=== PATIENT | female | born 1945 | race Caucasian/White ===

== ENCOUNTER 2017-07-03 11:35 | Emergency (ER) | payer OTHER, MEDICAID ==
[~2017-07-03] VITALS: Ht 172.7 cm; Wt 55.0 kg
[2017-07-03 11:39] VITALS: BP 144/83; PULSE 98; RESP 16; TEMP 98; O2SAT 99
[2017-07-03] MEDS ORDERED: VIST25CA PO (12:00)
--- NOTE | 2017-07-03 12:07 | PD ---
HPI Chief Complaint: Anxiety Time Seen by Provider: 11:59 Travel History International Travel<30 days: No Contact w/Intl Traveler<30days: No Traveled to known affect area: No History of Present Illness HPI 71-year-old female presents emergency department with ongoing issues with anxiety and insomnia for the past several months worse the last several days. Patient relates a history of multiple abdominal surgeries and hip fracture since last fall. She is now living on her own, and feeling anxious. She is not depressed or suicidal. She does see a psychiatrist who recently prescribed BuSpar in addition to her nortriptyline. Patient states she did not take the BuSpar she was feeling somewhat better. Today she feels worse and more anxious. She denies significant anxiety attacks however. Patient denies any other acute medical issues at this time. She has no known drug allergies. [facility] Social History Alcohol Use: Yes Tobacco Use: No Substance Use: No Allergies-Medications Reported Meds & Prescriptions Reported Meds & Active Scripts Active Vistaril (Hydroxyzine Pamoate) 25 Mg Cap 25 Mg PO QID Review of Systems Except as stated in HPI: all other systems reviewed are Neg General / Constitutional: No: Fever Eyes: No: Visual changes HENT: No: Headaches Cardiovascular: No: Chest Pain or Discomfort Respiratory: No: Shortness of Breath Gastrointestinal: No: Abdominal Pain Genitourinary: No: Dysuria Musculoskeletal: No: Pain Skin: No Rash Neurologic: No: Weakness Psychiatric: Positive: Anxiety, Depression, No: Suicidal Ideations (Mild), Substance Abuse, Homicidal Ideation Endocrine: No: Polydipsia Hematologic/Lymphatic: No: Easy Bruising Physical Exam Narrative GENERAL: Patient does appear somewhat anxious, but otherwise in no acute distress. SKIN: Warm and dry. Normal color. Normal turgor. HEAD: Atraumatic. Normocephalic. EYES: Pupils equal and round. No scleral icterus. No injection or drainage. ENT: No nasal bleeding or discharge. Mucous membranes pink and moist. Pharynx is clear. Airways patent. NECK: Trachea midline. Supple and nontender. No palpable thyroid. CARDIOVASCULAR: Regular rate and rhythm. RESPIRATORY: No accessory muscle use. Clear to auscultation. Breath sounds equal bilaterally. MUSCULOSKELETAL: Extremities without clubbing, cyanosis, or edema. No obvious deformities. NEUROLOGICAL: Awake and alert. No obvious cranial nerve deficits. Motor grossly within normal limits. Five out of 5 muscle strength in the arms and legs. Normal speech. PSYCHIATRIC: Appropriate mood and affect; insight and judgment normal. Data Data Last Documented VS Vital Signs Date Time Temp Pulse Resp B/P (MAP) Pulse Ox O2 Delivery O2 Flow Rate FiO2 07/03/17 11:39 98.0 98 16 144/83 (103) 99 MDM Medical Decision Making Medical Screen Exam Complete: Yes Emergency Medical Condition: Yes Differential Diagnosis Mild depression. Anxiety. Insomnia. Narrative Course Recommend the patient continue her nortriptyline as previously prescribed Recommend patient start her BuSpar as prescribed. Patient is given Vistaril 25 mg up to 4 times daily as needed, #20 Patient should follow with her psychiatrist regarding further changes in her meds. Patient can return if symptoms worsen as needed. Diagnosis Primary Impression: Depression with anxiety Referrals: Psychiatrist Patient Instructions: Anxiety (ED), General Instructions Additional Instructions: Recommend the patient continue her nortriptyline as previously prescribed Recommend patient start her BuSpar as prescribed. Patient is given Vistaril 25 mg up to 4 times daily as needed, #20 Patient should follow with her psychiatrist regarding further changes in her meds. Patient can return if symptoms worsen as needed. Med/Other Pt SpecificInfo: Prescription(s) given Scripts Hydroxyzine Pamoate (Vistaril) 25 Mg Cap 25 MG PO QID for Anxiety and/or Insomnia, #20 CAP 0 Refills Prov: Humberto Nogueira MD 07/03/17 Disposition: 01 DISCHARGE HOME Condition: Stable Morgan Vizcarra July 03, 2017 12:07
== END 2017-07-03 13:08 | disposition home or self-care (01) ==
LOC: NEPK 11:35
DX: F41.8 Other specified anxiety disorders (principal); G47.00 Insomnia, unspecified
CPT/HCPCS: 99283

== ENCOUNTER 2017-07-04 01:48 | Emergency (ER) | payer OTHER, MEDICAID ==
[~2017-07-04 01:48] MED LIST: VIST25CA PO
[2017-07-04 01:51] VITALS: BP 149/70; PULSE 102; RESP 18; TEMP 97.1; O2SAT 99
--- NOTE | 2017-07-04 02:09 | PD ---
HPI Chief Complaint: Anxiety Time Seen by Provider: 02:02 Travel History International Travel<30 days: No Contact w/Intl Traveler<30days: No Traveled to known affect area: No History of Present Illness HPI 71-year-old female here by private vehicle for evaluation of anxiety, depression , insomnia. The patient was seen in the emergency department yesterday for the same, however states that her symptoms have not improved. She talks about how a couple of months ago, over the course of form when she had 3 major abdominal surgeries and right hip surgery. This caused her to become depressed. She talks about how she needed an NG tube and how awful this experience was. She states that her abdomen has healed since then and she does not have any abdominal complaints today. She states that she is on Klonopin, however she has been reading the Klonopin can have adverse side effects such as insomnia. She has been waking up for the past 3 or 4 nights in the middle of the night and unable to fall back asleep. She reports feeling depressed and is thought about suicide, however states she would never harm herself, and has no specific plan. [facility] Past Medical History Diminished Hearing: No Fibromyalgia: Yes Immunizations Current: Yes Past Surgical History Abdominal Surgery: Yes (COLON REMOVAL, SMALL INTESTINE REMOVAL) Other Surgery: Yes (CHOLOSTOMY PLACEMENT/REMOVAL) Social History Alcohol Use: No Tobacco Use: No Substance Use: No Allergies-Medications (Allergen,Severity, Reaction): Coded Allergies: Sulfa (Sulfonamide Antibiotics) (Verified Allergy, Severe, 07/04/17) metronidazole (Verified Allergy, Severe, 07/04/17) promethazine (Verified Allergy, Severe, 07/04/17) Reported Meds & Prescriptions Reported Meds & Active Scripts Active Vistaril (Hydroxyzine Pamoate) 25 Mg Cap 25 Mg PO QID Review of Systems Except as stated in HPI: all other systems reviewed are Neg Physical Exam Narrative GENERAL: Well-developed, well-nourished, awake, alert, no apparent distress. SKIN: Focused skin assessment warm/dry. HEAD: Atraumatic. Normocephalic. EYES: Pupils equal and round. No scleral icterus. No injection or drainage. ENT: No nasal bleeding or discharge. Mucous membranes pink and moist. NECK: Trachea midline. No JVD. CARDIOVASCULAR: Regular rate and rhythm. No murmur appreciated. RESPIRATORY: No accessory muscle use. Clear to auscultation. Breath sounds equal bilaterally. GASTROINTESTINAL: Abdomen soft, non-tender, nondistended. Hepatic and splenic margins not palpable. MUSCULOSKELETAL: No obvious deformities. No clubbing. No cyanosis. No edema. NEUROLOGICAL: Awake and alert. No obvious cranial nerve deficits. Motor grossly within normal limits. Normal speech. PSYCHIATRIC: Appears anxious. Data Data Last Documented VS Vital Signs Date Time Temp Pulse Resp B/P (MAP) Pulse Ox O2 Delivery O2 Flow Rate FiO2 07/04/17 01:51 97.1 102 18 149/70 (96) 99 Orders Orders Complete Blood Count With Diff (07/04/17 02:07) Comprehensive Metabolic Panel (07/04/17 02:07) Thyroid Stimulating Hormone (07/04/17 02:07) Psych Screen (07/04/17 02:07) Lorazepam Inj (Ativan Inj) (07/04/17 02:15) Labs Laboratory Tests Test 07/04/17 02:20 White Blood Count 6.1 TH/MM3 Red Blood Count 4.88 MIL/MM3 Hemoglobin 15.0 GM/DL Hematocrit 44.7 % Mean Corpuscular Volume 91.6 FL Mean Corpuscular Hemoglobin 30.8 PG Mean Corpuscular Hemoglobin Concent 33.6 % Red Cell Distribution Width 14.4 % Platelet Count 304 TH/MM3 Mean Platelet Volume 9.3 FL Neutrophils (%) (Auto) 51.0 % Lymphocytes (%) (Auto) 37.4 % Monocytes (%) (Auto) 8.4 % Eosinophils (%) (Auto) 2.2 % Basophils (%) (Auto) 1.0 % Neutrophils # (Auto) 3.1 TH/MM3 Lymphocytes # (Auto) 2.3 TH/MM3 Monocytes # (Auto) 0.5 TH/MM3 Eosinophils # (Auto) 0.1 TH/MM3 Basophils # (Auto) 0.1 TH/MM3 CBC Comment DIFF FINAL Differential Comment Blood Urea Nitrogen 18 MG/DL Creatinine 0.95 MG/DL Random Glucose 101 MG/DL Total Protein 8.8 GM/DL Albumin 4.1 GM/DL Calcium Level 9.1 MG/DL Alkaline Phosphatase 74 U/L Aspartate Amino Transf (AST/SGOT) 45 U/L Alanine Aminotransferase (ALT/SGPT) 34 U/L Total Bilirubin 0.5 MG/DL Sodium Level 138 MEQ/L Potassium Level 4.7 MEQ/L Chloride Level 102 MEQ/L Carbon Dioxide Level 28.8 MEQ/L Anion Gap 7 MEQ/L Estimat Glomerular Filtration Rate 58 ML/MIN Thyroid Stimulating Hormone 3rd Gen 2.690 uIU/ML MDM Medical Decision Making Medical Screen Exam Complete: Yes Emergency Medical Condition: Yes Differential Diagnosis Anxiety, depression, PTSD, insomnia Narrative Course Vital signs reviewed. CBC is unremarkable. CMP shows a potassium of 4.7 with slight hemolysis, AST 45, otherwise unremarkable. TSH is 2.69. Patient was given 1 mg of IV Ativan and on reassessment states she feels better. She was to like to talk to the psychiatric team about the way she is feeling. She is medically cleared for psychiatric evaluation and disposition by them. Diagnosis Primary Impression: Anxiety Additional Impression: Insomnia Qualified Codes: G47.00 - Insomnia, unspecified Irving Erickson MD July 04, 2017 02:09
[2017-07-04] MEDS ORDERED: LORazepam 2 MG/ML VIAL IV PUSH ONE (02:15)
[2017-07-04 02:46] LABS: AUTOMATED NEUTROPHIL # 3.1 TH/MM3 (1.8-7.7); BASOPHIL # 0.1 TH/MM3 (0-0.2); EOSINOPHIL # 0.1 TH/MM3 (0-0.4); EOSINOPHIL % 2.2 % (0.0-4.0); HEMATOCRIT 44.7 % (35.0-46.0); LYMPH % 37.4 % (9.0-44.0); LYMPHOCYTE # 2.3 TH/MM3 (1.0-4.8); MEAN CELL VOLUME 91.6 FL (80.0-100.0); MEAN CORPUSCULAR HEMOGLOBIN 30.8 PG (27.0-34.0); MEAN CORPUSCULAR HGB CONC 33.6 % (32.0-36.0); MEAN PLATELET VOLUME 9.3 FL (7.0-11.0); MONO % 8.4 % (0.0-8.0); MONOCYTE # 0.5 TH/MM3 (0-0.9); PLATELET COUNT 304 TH/MM3 (150-450); RED BLOOD COUNT 4.88 MIL/MM3 (4.00-5.30); RED CELL DISTRIBUTION WIDTH 14.4 % (11.6-17.2); WHITE BLOOD COUNT 6.1 TH/MM3 (4.0-11.0)
[2017-07-04 03:15] LABS: ALKALINE PHOSPHATASE 74 U/L (45-117); ALT (GPT) 34 U/L (10-53); TOTAL BILIRUBIN ADULT 0.5 MG/DL (0.2-1.0); TOTAL PROTEIN 8.8 GM/DL (6.4-8.2)
[2017-07-04 03:41] LABS: ALBUMIN 4.1 GM/DL (3.4-5.0); AST (GOT) 45 U/L (15-37); BICARBONATE 28.8 MEQ/L (21.0-32.0); BLOOD UREA NITROGEN 18 MG/DL (7-18); CALCIUM 9.1 MG/DL (8.5-10.1); CHLORIDE 102 MEQ/L (98-107); CREATININE 0.95 MG/DL (0.50-1.00); GLOMERULAR FILTRATION RATE 58 ML/MIN (>89); GLUCOSE,RANDOM 101 MG/DL (74-106); SODIUM (NA) 138 MEQ/L (136-145)
--- NOTE | 2017-07-04 08:00 | PD ---
Data Data Last Documented VS Vital Signs Date Time Temp Pulse Resp B/P (MAP) Pulse Ox O2 Delivery O2 Flow Rate FiO2 07/04/17 01:51 97.1 102 18 149/70 (96) 99 Orders Orders Complete Blood Count With Diff (07/04/17 02:07) Comprehensive Metabolic Panel (07/04/17 02:07) Thyroid Stimulating Hormone (07/04/17 02:07) Psych Screen (07/04/17 02:07) Lorazepam Inj (Ativan Inj) (07/04/17 02:15) Labs Laboratory Tests Test 07/04/17 02:20 White Blood Count 6.1 TH/MM3 Red Blood Count 4.88 MIL/MM3 Hemoglobin 15.0 GM/DL Hematocrit 44.7 % Mean Corpuscular Volume 91.6 FL Mean Corpuscular Hemoglobin 30.8 PG Mean Corpuscular Hemoglobin Concent 33.6 % Red Cell Distribution Width 14.4 % Platelet Count 304 TH/MM3 Mean Platelet Volume 9.3 FL Neutrophils (%) (Auto) 51.0 % Lymphocytes (%) (Auto) 37.4 % Monocytes (%) (Auto) 8.4 % Eosinophils (%) (Auto) 2.2 % Basophils (%) (Auto) 1.0 % Neutrophils # (Auto) 3.1 TH/MM3 Lymphocytes # (Auto) 2.3 TH/MM3 Monocytes # (Auto) 0.5 TH/MM3 Eosinophils # (Auto) 0.1 TH/MM3 Basophils # (Auto) 0.1 TH/MM3 CBC Comment DIFF FINAL Differential Comment Blood Urea Nitrogen 18 MG/DL Creatinine 0.95 MG/DL Random Glucose 101 MG/DL Total Protein 8.8 GM/DL Albumin 4.1 GM/DL Calcium Level 9.1 MG/DL Alkaline Phosphatase 74 U/L Aspartate Amino Transf (AST/SGOT) 45 U/L Alanine Aminotransferase (ALT/SGPT) 34 U/L Total Bilirubin 0.5 MG/DL Sodium Level 138 MEQ/L Potassium Level 4.7 MEQ/L Chloride Level 102 MEQ/L Carbon Dioxide Level 28.8 MEQ/L Anion Gap 7 MEQ/L Estimat Glomerular Filtration Rate 58 ML/MIN Thyroid Stimulating Hormone 3rd Gen 2.690 uIU/ML [facility] Supervised Visit with BACILIO: No Narrative Course Patient feeling improved after sleeping all night. Has an appointment this morning that she wants to get to. Requesting to be discharged. Diagnosis Primary Impression: Anxiety Additional Impression: Insomnia Qualified Codes: G47.00 - Insomnia, unspecified Additional Instruction: Follow-up with your primary doctor in the next 2-4 days. Return to the emergency department for any new or worsening symptoms. Disposition: 01 DISCHARGE HOME Condition: Stable uHang Smith MD July 04, 2017 08:00
== END 2017-07-04 08:24 | disposition home or self-care (01) ==
LOC: NEPC 01:48
DX: F41.9 Anxiety disorder, unspecified (principal); G47.00 Insomnia, unspecified
CPT/HCPCS: 80053; 84443; 85025; 96374; 99284; J2060